=== PATIENT | female | born 2000 | race Caucasian/White ===

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

== ENCOUNTER 2021-05-05 18:03 | Emergency (ER) | payer OTHER ==
[~2021-05-05] VITALS: Ht 177.8 cm; Wt 64.0 kg
[2021-05-05 19:03] VITALS: BP 124/86
[2021-05-05] MEDS ORDERED: LIDOCAINE-MPF 1%, 5ML INFIL ONE ×2 (19:30→21:00)
[2021-05-05] MEDS ORDERED: NEOSPORIN OINT. PKT 1 PACKET ONE (20:31)
== END 2021-05-05 20:57 | disposition home or self-care (01) ==
LOC: ED 18:30
DX: S61.217A Laceration without foreign body of left little finger without damage to nail, initial encounter (principal); W26.9XXA Contact with unspecified sharp object(s), initial encounter; Y93.89 Activity, other specified; Y92.89 Other specified places as the place of occurrence of the external cause; Y99.8 Other external cause status
CPT/HCPCS: 12001; 99282

== ENCOUNTER 2021-05-08 21:10 | Emergency (ER) | payer OTHER ==
[~2021-05-08] VITALS: Ht 177.8 cm; Wt 63.8 kg
[2021-05-08 21:18] VITALS: BP 128/91
[2021-05-08] MEDS ORDERED: CEPHALEXIN 500 MG CAPSULE ONE (21:26)
[2021-05-08] MEDS ORDERED: CEPHALEXIN 500 MG CAPSULE PO ONE (21:30)
--- NOTE | 2021-05-08 21:32 | NUR ---
Patient given discharge instructions and they have confirmed that they understand the instructions. Patient ambulatory with steady gait. NAD, all questions answered appropriately, denies additional needs at this time. No personal belongings left in room after discharge.
== END 2021-05-08 21:35 ==
LOC: ED 21:20
DX: S61.22 Laceration with foreign body of finger without damage to nail (principal); X58.XXXD Exposure to other specified factors, subsequent encounter
CPT/HCPCS: 99283